=== PATIENT | male | born 1960 | race Caucasian/White ===

== ENCOUNTER 2018-12-18 11:42 | Inpatient (IN) | payer MEDICAID ==
[~2018-12-18] VITALS: Ht 162.6 cm; Wt 55.5 kg
[2018-12-18 13:08] LABS: BASOPHIL % 0.4 % (0-2); CALCIUM 8.7 mg/dL (8.5-10.1); CARBON DIOXIDE 29.7 mmol/L (21-32); CHLORIDE SERUM 101 mmol/L (98-107); CREATININE SERUM 0.7 mg/dL (0.7-1.3); GFR1 > 60 mL/min; GLUCOSE SERUM 103 mg/dL (74-106); PLATELET COUNT 368 x10^3mcL (130-400); POTASSIUM SERUM 4.3 mmol/L (3.5-5.1); RED CELL DISTRIBUTION WIDTH 13.3 % (11.5-14.5); SODIUM SERUM 138 mmol/L (136-145)
[2018-12-18 13:25] LABS: ALKALINE PHOSPHATASE 83 U/L (46-116); ALT/SGPT 22 U/L (16-63); AST/SGOT 26 U/L (15-37); C REACTIVE PROTEIN 10.3 mg/dL (<=0.9); TOTAL PROTEIN, SERUM 7.7 g/dL (6.4-8.2)
[2018-12-18 13:26] LABS: T3 TOTAL 0.94 ng/mL
[2018-12-18 13:28] LABS: FREE T4 1.44 ng/dL (0.76-1.46); FREE THYROXINE INDEX 2.7 ug/dL (1.4-4.5); T4(THYROXINE) 7.6 ug/dL (4.7-13.3)
[2018-12-18 13:29] LABS: CK-MB 1.3 ng/mL (0-3.6)
[2018-12-18 14:43] LABS: MAGNESIUM 2.3 mg/dL (1.8-2.4); PHOSPHOROUS 2.9 mg/dL (2.5-4.9)
[2018-12-18 14:48] LABS: CHOLESTEROL/HDL RATIO 2.2
[2018-12-18 15:33] LABS: microscopic required? NO
[2018-12-18 15:37] LABS: ERYTHROCYTE SED RATE 62 mm/hr (0-20)
[2018-12-18 15:48] VITALS: BP 108/48
[2018-12-18 15:51] LABS: urine erythrocyte NEGATIVE (NEGATIVE)
[2018-12-18 15:59] VITALS: Ht 162.6 cm; Wt 55.5 kg
[2018-12-18 16:13] LABS: AMPHETAMINE QUAL UR POSITIVE (See below)
[2018-12-18 17:27] VITALS: BP 102/55
[2018-12-18 20:27] VITALS: BP 103/57
[2018-12-19 05:07] VITALS: BP 109/71
[2018-12-19 08:49] VITALS: BP 117/70
[2018-12-19 13:52] VITALS: BP 101/52
[2018-12-19 14:58] LABS: CALCIUM 9.2 mg/dL (8.5-10.1); CARBON DIOXIDE 22.6 mmol/L (21-32); CHLORIDE SERUM 102 mmol/L (98-107); CREATININE SERUM 0.8 mg/dL (0.7-1.3); GFR1 > 60 mL/min; GLUCOSE SERUM 114 mg/dL (74-106); MAGNESIUM 2.2 mg/dL (1.8-2.4); PHOSPHOROUS 2.5 mg/dL (2.5-4.9); SODIUM SERUM 134 mmol/L (136-145)
[2018-12-19 16:51] VITALS: BP 122/68
[2018-12-19 19:58] VITALS: BP 117/74
[2018-12-20 06:02] VITALS: BP 132/81
[2018-12-20 08:24] VITALS: BP 122/70
[2018-12-20 12:00] VITALS: BP 125/77
[2018-12-20 16:45] VITALS: BP 107/63
[2018-12-20 20:39] VITALS: BP 108/62
[2018-12-20 21:53] VITALS: BP 108/62
== END 2018-12-21 09:31 | disposition left against medical advice (07) | DRG 364 ==
LOC: ED 11:42 → DU 13:55 → MU 12-20 15:35
PROVIDERS: Specialist; ADMIT General Practice
PROC: 0H9LXZZ Drainage of Left Lower Leg Skin, External Approach (ICD-10-PCS; 2018-12-18)
PROC: 0H9KXZZ Drainage of Right Lower Leg Skin, External Approach (ICD-10-PCS; 2018-12-18)
PROC: 0J9N0ZZ Drainage of Right Lower Leg Subcutaneous Tissue and Fascia, Open Approach (ICD-10-PCS; principal; 2018-12-19)
PROC: 0J9P0ZZ Drainage of Left Lower Leg Subcutaneous Tissue and Fascia, Open Approach (ICD-10-PCS; 2018-12-19)
DX: L02.415 Cutaneous abscess of right lower limb (principal); E44.0 Moderate protein-calorie malnutrition; F11.20 Opioid dependence, uncomplicated; E87.1 Hypo-osmolality and hyponatremia; L02.416 Cutaneous abscess of left lower limb; B18.2 Chronic viral hepatitis C; T40.1X1A Poisoning by heroin, accidental (unintentional), initial encounter; Z59.0 Homelessness; Y92.89 Other specified places as the place of occurrence of the external cause; Z68.24 Body mass index [BMI] 24.0-24.9, adult
CPT/HCPCS: 36600; 84439; J2001; J2060; J2270; J2543; J3370; J7030; J7050; Q0092